=== PATIENT | female | born 2000 | race African-American/Black ===

== ENCOUNTER 2023-02-01 06:02 | Inpatient (IN) ==
[2023-02-01] MEDS ORDERED: D5 1/2 NS 1,000 ML 1,000 ML IV SCH (06:36)
[2023-02-01] MEDS ORDERED: ANCEF VIAL 1 GRAM IVP ONE (06:36)
[2023-02-01] MEDS ORDERED: LR 1,000 ML IV 1,000 ML IV ONE (06:47)
[2023-02-01] MEDS ORDERED: NS 100 ML IV 100 ML ONE (07:08)
[2023-02-01] MEDS ORDERED: ANCEF VIAL 1 GRAM ONE (07:08)
[2023-02-01] MEDS ORDERED: VERSED ONE (07:21)
[2023-02-01] MEDS ORDERED: DILAUDID INJ ONE (07:21)
[2023-02-01] MEDS ORDERED: MARCAINE SPINAL ONE (07:31)
[2023-02-01] MEDS ORDERED: PEPCID 20 MG VIAL ONE (07:31)
[2023-02-01] MEDS ORDERED: XYLOCAINE 2 % (PLAIN) ONE (07:31)
[2023-02-01] MEDS ORDERED: PITOCIN ONE (07:31)
[2023-02-01] MEDS ORDERED: EPHEDRINE SULFATE INJ ONE (07:45)
[2023-02-01] MEDS ORDERED: BARHEMSYS INJ IVP PRN (09:28)
[2023-02-01] MEDS ORDERED: DILAUDID INJ IVP PRN (09:28)
[2023-02-01] MEDS ORDERED: BENADRYL INJ 50 MG VIAL IVP PRN ×2 (09:28→10:00)
[2023-02-01] MEDS ORDERED: ZOFRAN INJ 4 MG VIAL IVP PRN ×2 (09:28→10:00)
[2023-02-01] MEDS ORDERED: REGLAN INJ 10 MG VIAL IVP PRN ×2 (09:28→10:00)
[2023-02-01] MEDS ORDERED: MYLICON TAB 80 MG CHEW PO PRN (10:00)
[2023-02-01] MEDS ORDERED: NARCAN INJ IVP PRN (10:00)
[2023-02-01] MEDS ORDERED: ADACEL or BOOSTRIX TDaP VACCINE IM ONE (10:00)
[2023-02-01] MEDS ORDERED: PERCOCET TAB 5/325 MG PO PRN (10:00)
[2023-02-01] MEDS ORDERED: D5 1/2 NS 1,000 ML 1,000 ML with PITOCIN 20 UNITS IV SCH ×2 (10:00)
[2023-02-01] MEDS: FERROUS GLUCONATE PO SCH (17:53)
[2023-02-01] MEDS: TORADOL 30 MG VIAL IVP PRN (17:53)
[2023-02-01] MEDS: COLACE CAP 100 MG PO SCH (20:48)
[2023-02-02] MEDS: TORADOL 30 MG VIAL IVP PRN (05:14)
[2023-02-02 05:29] LABS: HEMATOCRIT 20.8 % (36.0-47.0)
[2023-02-02 05:39] LABS: HEMOGLOBIN 6.5 g/dL (12.0-16.0)
[2023-02-02] MEDS ORDERED: PERCOCET TAB 5/325 MG PO PRN (08:35)
[2023-02-02] MEDS: COLACE CAP 100 MG PO SCH ×2 (09:00→20:21)
[2023-02-02] MEDS: FERROUS GLUCONATE PO SCH ×2 (09:00→16:11)
[2023-02-02] MEDS: PRENATAL PLUS PO SCH (09:00)
[2023-02-02] MEDS: MOTRIN TAB 800 MG PO PRN ×3 (09:01→23:35)
[2023-02-02] MEDS: ULTRAM PO PRN ×2 (12:39→19:13)
[2023-02-02] MEDS: BACTROBAN TOPICAL OINT TOP SCH ×2 (14:31→21:19)
[2023-02-02 23:36] VITALS: RESP 20
[2023-02-03] MEDS: ULTRAM PO PRN (01:50)
[2023-02-03] MEDS: BACTROBAN TOPICAL OINT TOP SCH (05:15)
[2023-02-03] MEDS: FERROUS GLUCONATE PO SCH (06:09)
[2023-02-03] MEDS: COLACE CAP 100 MG PO SCH (09:05)
[2023-02-03] MEDS: PRENATAL PLUS PO SCH (09:06)
[2023-02-03] MEDS: MOTRIN TAB 800 MG PO PRN (09:25)
[2023-02-03 09:50] VITALS: BP 129/62; PULSE 90; TEMP 98.6; O2SAT 97
== END 2023-02-03 12:40 | disposition home or self-care (01) | DRG 788 ==
LOC: LD 06:02 → MED/SURG 10:08
PROVIDERS: ADMIT Specialist; ATTEND Specialist
DX: Z3A.39 39 weeks gestation of pregnancy; O99.013 Anemia complicating pregnancy, third trimester; Z37.0 Single live birth; R82.89 Other abnormal findings on cytological and histological examination of urine; O34.211 Maternal care for low transverse scar from previous cesarean delivery; R79.89 Other specified abnormal findings of blood chemistry; D50.8 Other iron deficiency anemias; N85.8 Other specified noninflammatory disorders of uterus; Z01.812 Encounter for preprocedural laboratory examination

== ENCOUNTER 2024-07-17 06:07 | Inpatient (IN) ==
[2024-07-17] MEDS: NOZIN NASAL SANITIZER TP ONE (06:45)
[2024-07-17] MEDS: LR 1,000 ML IV 1,000 ML IV SCH (06:45)
[2024-07-17] MEDS: LR 1,000 ML IV 2,000 ML IV PRN (07:00)
[2024-07-17] MEDS ORDERED: FENTANYL VIAL INJ 100 mcg ONE (07:13)
[2024-07-17] MEDS ORDERED: VERSED ONE (07:13)
[2024-07-17] MEDS ORDERED: PITOCIN ONE (07:15)
[2024-07-17] MEDS ORDERED: MARCAINE SPINAL ONE (07:15)
[2024-07-17] MEDS ORDERED: PRECEDEX INJ VIAL ONE (07:15)
[2024-07-17] MEDS ORDERED: XYLOCAINE 2 % (PLAIN) ONE (07:16)
[2024-07-17] MEDS: ANCEF VIAL 1 GRAM IVP ONE (07:27)
[2024-07-17] MEDS: NS 100 ML IV 100 ML ONE (07:27)
[2024-07-17] MEDS: PEPCID 20 MG VIAL IVP PRN (07:30)
[2024-07-17] MEDS ORDERED: PRECEDEX INJ VIAL PRN (07:45)
[2024-07-17] MEDS ORDERED: PEPCID 20 MG VIAL ONE (08:06)
[2024-07-17] MEDS ORDERED: OFIRMEV IV 1000 MG VIAL 1,000 MG/100 ML VIAL IV ONE (08:08)
[2024-07-17] MEDS ORDERED: PITOCIN IVP PRN (08:17)
[2024-07-17] MEDS ORDERED: OFIRMEV IV 1000 MG VIAL 1,000 MG/100 ML VIAL PRN (08:19)
[2024-07-17] MEDS: VERSED IVP PRN (09:16)
[2024-07-17] MEDS: PRECEDEX INJ VIAL IVP PRN (09:22)
[2024-07-17] MEDS: NS 1,000 ML IV 0 ML IV PRN (09:31)
[2024-07-17] MEDS ORDERED: BENADRYL INJ 50 MG VIAL IVP PRN ×2 (09:45→10:24)
[2024-07-17] MEDS ORDERED: ZOFRAN INJ 4 MG VIAL IVP PRN ×2 (09:45→10:24)
[2024-07-17] MEDS ORDERED: DILAUDID INJ IVP PRN (09:45)
[2024-07-17] MEDS ORDERED: BARHEMSYS INJ IVP PRN (09:45)
[2024-07-17] MEDS ORDERED: REGLAN INJ 10 MG VIAL IVP PRN ×2 (09:45→10:24)
[2024-07-17] MEDS: OXYTOCIN 20 UNIT/1,000 ML-NS 20 UNIT/1,000 ML PLAST..BAG IV SCH (11:53)
[2024-07-17] MEDS: TORADOL 30 MG VIAL IVP PRN (12:00)
[2024-07-17] MEDS: MYLICON TAB 80 MG CHEW PO PRN (16:08)
[2024-07-17] MEDS: PERCOCET TAB 5/325 MG PO PRN (16:08)
[2024-07-17] MEDS: ADACEL or BOOSTRIX TDaP VACCINE IM ONE (17:39)
[2024-07-17] MEDS: CIPRO IV 400 MG PREMIX* 400 MG/200 ML IV.SOLN. IV SCH (20:43)
[2024-07-18] MEDS: PERCOCET TAB 5/325 MG PO PRN (04:55)
[2024-07-18 05:29] LABS: HEMOGLOBIN 7.5 g/dL (12.0-16.0)
--- NOTE | 2024-07-18 09:02 | NOTE.PROBC ---
Progress Note OB-C/S Date Date of Exam: 07/18/24 Subjective Data Subjective: Pain under better control with Percocet. No present complaints. Tolerating a regular diet. Objective Data 07/18/24 04:05 Objective Data: CV= RRR no MRG Lungs=CTA Bilaterally Abd=(+) BS, soft, ND, appropriately tender near incision. Incision clean/dry/intact, no erythema, no bleeding, no discharge. Fundus firm/NT/ at umbilicus. Ext= No edema, NT, No Cords. Graduated Compression Stockings/Sequential Compression Devices Bilaterally. Assessment Assessment: Postoperative day #1 status post section on Saturday. Patient doing well.
[2024-07-18] MEDS: PRENATAL PLUS PO SCH (09:14)
[2024-07-18] MEDS: CIPRO TAB 500 MG PO SCH (09:14)
[2024-07-18] MEDS: COLACE CAP 100 MG PO SCH (09:15)
[2024-07-18] MEDS: BACTROBAN TOPICAL OINT TOP SCH (15:05)
[2024-07-18 20:03] VITALS: O2SAT 100
[2024-07-19] MEDS: MOTRIN TAB 800 MG PO PRN (04:51)
[2024-07-19 08:05] VITALS: BP 126/80; PULSE 93; TEMP 98.6
[2024-07-19] MEDS ORDERED: PERCOCET TAB 5/325 MG PO PRN (08:11)
[2024-07-19] MEDS: MILK OF MAGNESIA PO ONE (08:59)
[2024-07-19] MEDS: MILK OF MAGNESIA PO SCH (09:08)
[2024-07-19] MEDS: DEPO-PROVERA CONTRACEPTIVE INJ IM ONE (09:15)
[2024-07-19 11:03] VITALS: RESP 19
== END 2024-07-19 11:25 | disposition home or self-care (01) | DRG 787 ==
LOC: LD 06:07 → MED/SURG 10:23
PROVIDERS: ADMIT Specialist; ATTEND Specialist
DX: Z01.818 Encounter for other preprocedural examination; D50.8 Other iron deficiency anemias; Z37.0 Single live birth; O41.03X0 Oligohydramnios, third trimester, not applicable or unspecified; K66.0 Peritoneal adhesions (postprocedural) (postinfection); O34.211 Maternal care for low transverse scar from previous cesarean delivery; Z3A.38 38 weeks gestation of pregnancy; N85.8 Other specified noninflammatory disorders of uterus; O99.013 Anemia complicating pregnancy, third trimester; Z01.812 Encounter for preprocedural laboratory examination